=== PATIENT | male | born 2000 | race African-American/Black ===

== ENCOUNTER 2023-11-15 09:34 | Emergency (ER) | payer SELFPAY ==
[~2023-11-15] VITALS: Ht 182.9 cm; Wt 94.0 kg
[2023-11-15 09:38] VITALS: O2SAT 99
[2023-11-15] MEDS ORDERED: IBUP-2030 MT (11:25)
[2023-11-15] MEDS ORDERED: CYCL5TAB MT (11:26)
[2023-11-15 11:37] VITALS: BP 126/81; PULSE 88; RESP 18; TEMP 98.3
== END 2023-11-15 11:36 | disposition home or self-care (01) ==
LOC: ER 09:34
DX: S43.492A Other sprain of left shoulder joint, initial encounter (principal); S16.1XXA Strain of muscle, fascia and tendon at neck level, initial encounter; V98.8XXA Other specified transport accidents, initial encounter; Y93.89 Activity, other specified; Y92.89 Other specified places as the place of occurrence of the external cause; Y99.8 Other external cause status
CPT/HCPCS: 72040; 73030; 99284